=== PATIENT | male | born 1960 | race Caucasian/White ===

== ENCOUNTER 2022-02-18 18:59 | Inpatient (IN) | payer BC ==
[2022-02-18] MEDS ORDERED: Sodium Chloride 0.9% 10 ML Syringe FLUSH PRN (19:49)
[2022-02-18] MEDS ORDERED: Sodium Chloride 0.9% 1,000 ML IV STA ×3 (20:34→22:02)
[2022-02-18 20:59] LABS: CORONAVIRUS COVID-19 NAA NEGATIVE (NEGATIVE)
[2022-02-18] MEDS ORDERED: cefTRIAXone 2 GM in Sodium Chloride 0.9% 100 ML IV ONE (21:06)
[2022-02-18] MEDS ORDERED: Sodium Chloride 0.9% 500 ML IV ONE (21:48)
[2022-02-18] MEDS ORDERED: Albuterol/Ipratropium 3.0-0.5 MG/3 ML Neb Soln NEB ONE (21:58)
[2022-02-18] MEDS ORDERED: Acetaminophen 325 MG Tab PO ONE (22:00)
[2022-02-19] MEDS ORDERED: Albuterol/Ipratropium 3.0-0.5 MG/3 ML Neb Soln NEB PRN (00:29)
[2022-02-19] MEDS ORDERED: Sodium Chloride 0.9% 1,000 ML IV ONE ×2 (04:05→06:31)
[2022-02-19 06:18] LABS: ESTIMATED GFR > 60 mL/min (>60)
[2022-02-19] MEDS ORDERED: Lactated Ringers 1,000 ML IV SCH ×2 (08:15→14:30)
[2022-02-19] MEDS: Acetaminophen 325 MG Tab PO PRN ×3 (08:25→21:15)
[2022-02-19] MEDS ORDERED: Polyethylene Glycol 3350 Powder 17 GM Packet PO PRN (08:43)
[2022-02-19] MEDS ORDERED: Ondansetron 4 MG/2 ML SDV IV PRN (08:43)
[2022-02-19] MEDS ORDERED: Albuterol 0.083% 2.5 MG/3 ML Neb Soln NEB PRN (08:43)
[2022-02-19] MEDS: Benzonatate 100 MG Cap PO SCH ×2 (09:46→21:03)
[2022-02-19] MEDS ORDERED: Albuterol/Ipratropium 3.0-0.5 MG/3 ML Neb Soln NEB SCH (10:00)
[2022-02-19] MEDS: Meropenem Premix 500 MG in Premix Bag 1 BAG IV SCH ×3 (12:21→22:44)
[2022-02-19] MEDS: Diltiazem IR 30 MG Tab PO SCH ×2 (12:22→17:37)
[2022-02-19] MEDS ORDERED: Levalbuterol HCl 1.25 MG/3 ML Neb NEB PRN (12:53)
[2022-02-19] MEDS: guaiFENesin/Dextromethorphan 100-10 MG/5 ML Soln 5 ML Cup PO SCH ×2 (13:27→21:02)
[2022-02-19] MEDS ORDERED: Vancomycin 1 GM, Vancomycin 500 MG in Sodium Chloride 0.9% 500 ML IV ONE (13:30)
[2022-02-19] MEDS: Ipratropium 0.02% 0.5 MG/2.5 ML Neb Soln NEB SCH ×2 (14:47→21:09)
[2022-02-19] MEDS: Levalbuterol HCl 1.25 MG/3 ML Neb NEB SCH ×2 (14:47→21:09)
[2022-02-19] MEDS ORDERED: Ipratropium 0.02% 0.5 MG/2.5 ML Neb Soln NEB SCH (16:00)
[2022-02-19] MEDS ORDERED: Levalbuterol HCl 1.25 MG/3 ML Neb NEB SCH (16:00)
[2022-02-19] MEDS ORDERED: cefTRIAXone 2 GM in Sodium Chloride 0.9% 100 ML IV SCH (21:00)
[2022-02-19] MEDS: Apixaban 5 MG Tab PO SCH (21:03)
[2022-02-20] MEDS: Diltiazem IR 30 MG Tab PO SCH ×5 (00:07→23:33)
[2022-02-20] MEDS ORDERED: Vancomycin 1 GM, Vancomycin 250 MG in Sodium Chloride 0.9% 250 ML IV SCH (01:30)
[2022-02-20] MEDS: Ipratropium 0.02% 0.5 MG/2.5 ML Neb Soln NEB SCH ×4 (04:26→20:00)
[2022-02-20] MEDS: Levalbuterol HCl 1.25 MG/3 ML Neb NEB SCH ×4 (04:26→20:00)
[2022-02-20] MEDS: Meropenem Premix 500 MG in Premix Bag 1 BAG IV SCH ×4 (05:46→22:51)
[2022-02-20 06:25] LABS: ESTIMATED GFR > 60 mL/min (>60)
[2022-02-20] MEDS: guaiFENesin/Dextromethorphan 100-10 MG/5 ML Soln 5 ML Cup PO SCH ×3 (06:55→20:47)
[2022-02-20] MEDS: Benzonatate 100 MG Cap PO SCH ×2 (09:51→20:47)
[2022-02-20] MEDS: Magnesium Oxide 400 MG Tab PO SCH (09:51)
[2022-02-20] MEDS: Apixaban 5 MG Tab PO SCH ×2 (09:52→20:47)
[2022-02-20] MEDS: Potassium Chloride 20 MEQ Tab.ER PO SCH ×2 (09:52→20:47)
[2022-02-20] MEDS: Acetaminophen 325 MG Tab PO PRN ×3 (10:10→23:33)
[2022-02-20] MEDS: Metoprolol Tartrate 25 MG Tab PO SCH (20:45)
[2022-02-21] MEDS: Ipratropium 0.02% 0.5 MG/2.5 ML Neb Soln NEB SCH ×4 (03:05→21:03)
[2022-02-21] MEDS: Levalbuterol HCl 1.25 MG/3 ML Neb NEB SCH ×4 (03:05→21:03)
[2022-02-21] MEDS: Meropenem Premix 500 MG in Premix Bag 1 BAG IV SCH ×2 (05:03→11:17)
[2022-02-21] MEDS: guaiFENesin/Dextromethorphan 100-10 MG/5 ML Soln 5 ML Cup PO SCH ×3 (06:06→20:40)
[2022-02-21] MEDS: Diltiazem IR 30 MG Tab PO SCH ×4 (06:06→23:49)
[2022-02-21 06:30] LABS: ESTIMATED GFR > 60 mL/min (>60)
[2022-02-21] MEDS: Magnesium Oxide 400 MG Tab PO SCH (09:04)
[2022-02-21] MEDS: Losartan 25 MG Tab PO SCH (09:04)
[2022-02-21] MEDS: Apixaban 5 MG Tab PO SCH ×2 (09:06→20:32)
[2022-02-21] MEDS: Potassium Chloride 20 MEQ Tab.ER PO SCH (09:06)
[2022-02-21] MEDS: Metoprolol Tartrate 25 MG Tab PO SCH ×2 (09:07→20:33)
[2022-02-21] MEDS: Benzonatate 100 MG Cap PO SCH (09:07)
[2022-02-21] MEDS: Acetaminophen 325 MG Tab PO PRN ×2 (09:17→20:38)
[2022-02-21] MEDS ORDERED: Benzonatate 100 MG Cap PO PRN (10:29)
[2022-02-21] MEDS: Furosemide 20 MG Tab PO SCH (11:16)
[2022-02-21] MEDS ORDERED: Magnesium Sulfate/Water 2 GM in Premix Bag 1 BAG IV ONE (11:32)
[2022-02-21] MEDS: Cephalexin 500 MG Cap PO SCH (20:37)
[2022-02-21] MEDS ORDERED: Rosuvastatin 10 MG Tab PO SCH (21:00)
[2022-02-21] MEDS ORDERED: Potassium Chloride 20 MEQ Tab.ER PO SCH (21:00)
[2022-02-22] MEDS: Levalbuterol HCl 1.25 MG/3 ML Neb NEB SCH ×2 (02:52→09:52)
[2022-02-22] MEDS: Ipratropium 0.02% 0.5 MG/2.5 ML Neb Soln NEB SCH ×2 (02:52→09:52)
[2022-02-22] MEDS: Cephalexin 500 MG Cap PO SCH (04:02)
[2022-02-22 05:59] LABS: ESTIMATED GFR > 60 mL/min (>60)
[2022-02-22] MEDS: guaiFENesin/Dextromethorphan 100-10 MG/5 ML Soln 5 ML Cup PO SCH (07:37)
[2022-02-22] MEDS: Diltiazem IR 30 MG Tab PO SCH (07:37)
[2022-02-22] MEDS: Acetaminophen 325 MG Tab PO PRN (08:46)
[2022-02-22] MEDS: Losartan 25 MG Tab PO SCH (08:46)
[2022-02-22] MEDS: Magnesium Oxide 400 MG Tab PO SCH (08:47)
[2022-02-22] MEDS: Furosemide 20 MG Tab PO SCH (08:47)
[2022-02-22] MEDS: Apixaban 5 MG Tab PO SCH (08:47)
[2022-02-22] MEDS: Metoprolol Tartrate 25 MG Tab PO SCH (08:47)
== END 2022-02-22 10:15 | disposition home or self-care (01) | DRG 720 ==
LOC: JD.ED 18:59 → JD.MS 22:47
PROVIDERS: ADMIT Pediatrics; ATTEND Pediatrics
DX: A41.9 Sepsis, unspecified organism (principal); J13 Pneumonia due to Streptococcus pneumoniae; J96.01 Acute respiratory failure with hypoxia; R65.20 Severe sepsis without septic shock; R04.2 Hemoptysis; I48.91 Unspecified atrial fibrillation; F41.9 Anxiety disorder, unspecified; Z20.822 Contact with and (suspected) exposure to COVID-19; Z86.16 Personal history of COVID-19; Z98.890 Other specified postprocedural states
CPT/HCPCS: 0240U; 36415; 71250; 71250-26; 80053; 80061; 81001; 83605; 83735; 83880; 84484; 85025; 85379; 85610; 86140; 86738; 87040; 87641; 87899; 93005; 93010; 93306; 94640; 94667; 94668; 94761; 96361; 96365; 96375; 99284; 99285-25; A9270-GY; J0696; J1580; J2185; J3370; J3475; J3490; J7030; J7040; J7120; J7612-GY; J7620-GY